=== PATIENT | female | born 1950 | race Caucasian/White ===

== ENCOUNTER 2016-05-10 12:10 | Emergency (ER) | payer MEDICARE, BC ==
[~2016-05-10] VITALS: Ht 167.6 cm; Wt 68.0 kg
[2016-05-10] MEDS ORDERED: ADDERAL20 MG ORAL (12:13)
[2016-05-10] MEDS ORDERED: ZOLPIDEM TARTRAT5 MG ORAL (12:13)
[2016-05-10 12:59] VITALS: BP 125/70
[2016-05-10 13:30] LABS: APPEARANCE,URINE CLEAR; BASOPHILS % (AUTO) 0.6 % (0.0-2.0); EOSINOPHILS % (AUTO) 1.6 % (0.0-3.0); KETONES,URINE NEGATIVE (NEGATIVE); LEUKOCYTE ESTERASE ,URINE NEGATIVE (NEGATIVE); LYMPHOCYTES % (AUTO) 34.1 % (20.0-45.0); MEAN CORPUSCULAR HEMOGLOBIN 29.4 PG (27.0-31.0); MEAN CORPUSCULAR HGB CONC 32.6 G/DL (32.0-36.0); MEAN CORPUSCULAR VOLUME 90 FL (80-99); MEAN PLATELET VOLUME 8.3 FL (6.5-10.1); MONOCYTES % (AUTO) 6.1 % (1.0-10.0); NEUTROPHILS % (AUTO) 57.6 % (45.0-75.0); NITRITE,URINE NEGATIVE (NEGATIVE); PH,URINE 7 (4.5-8.0); PLATELET COUNT 210 K/UL (150-450); PROTEIN,URINE NEGATIVE (NEGATIVE); RED BLOOD COUNT 4.03 M/UL (4.20-5.40); RED CELL DISTRIBUTION WIDTH 11.9 % (11.6-14.8); UROBILINOGEN,URINE NORMAL MG/DL (0.0-1.0); WHITE BLOOD COUNT 6.3 K/UL (4.8-10.8)
[2016-05-10 13:42] LABS: ACETAMINOPHEN < 10 ug/mL (10-30); ALANINE AMINOTRANSFERASE 12 U/L (3-33); ALBUMIN/GLOBULIN RATIO 2.1 (1.0-2.7); ALCOHOL < 10 mg/dL; ANION GAP 12 (5-15); ASPARTATE AMINO TRANSFERASE 16 U/L (5-40); CARBON DIOXIDE 28 mEQ/L (20-30); CHLORIDE 99 mEQ/L (98-107); CREATININE 0.9 mg/dL (0.5-0.9); GLOMERULAR FILTRATION RATE > 60 mL/min (>60); HEMOLYSIS 5; POTASSIUM 3.7 mEQ/L (3.4-4.9); SODIUM 139 mEQ/L (135-145); TOTAL PROTEIN 6.3 g/dL (6.6-8.7)
[2016-05-10 13:44] LABS: TROPONIN I < 0.30 ng/mL (<=0.30)
[2016-05-10 13:53] LABS: CKMB 2.6 ng/mL (< 3.8)
[2016-05-10 14:36] VITALS: BP 124/72
--- NOTE | 2016-05-10 15:10 | Emergency Room Report ---
History of Present Illness General Chief Complaint: Dizziness Source: Patient, Friend, EMS Present Illness HPI 65-year-old female presents to ED for evaluation. Per EMS patient's coworkers called 911 because she appeared disoriented today. Upon arrival patient appears lethargic and confused. Patient is answering questions. Patient admitted to nurse that she took Ambien this morning. Patient is aware that Ambien is used at nighttime to help her sleep. Patient denies any other drug use or alcohol use. Denies hitting her head or LOC. Denies suicidal or homicidal ideation. No other aggravating relieving factors. Denies any other associated symptoms Allergies: Coded Allergies: CODEINE (Verified Allergy, Unknown, 05/10/16) Patient History Past Medical History: psych hx Past Surgical History: none Pertinent Family History: none Social History: Denies: alcohol use, drug use, smoking Last Menstrual Period: na Now: No Immunizations: UTD Reviewed Nursing Documentation: PMH: Agreed, PSxH: Agreed Nursing Documentation-PMH Past Medical History: No History, Except For History Of Psychiatric Problem: Yes - anxiety Review of Systems All Other Systems: negative except mentioned in HPI Physical Exam Vital Signs Date Time Temp Pulse Resp B/P Pulse Ox O2 Delivery O2 Flow Rate FiO2 05/10/16 12:05 97.9 68 16 132/70 99 Room Air Sp02 EP Interpretation: reviewed, normal General Appearance: no apparent distress, GCS 15, non-toxic, lethargic Head: normocephalic, atraumatic Eyes: bilateral eye PERRL, bilateral eye normal inspection ENT: hearing grossly normal, normal pharynx, no angioedema, normal voice Neck: full range of motion, supple/symm/no masses Respiratory: chest non-tender, lungs clear, normal breath sounds, speaking full sentences Cardiovascular #1: regular rate, rhythm, no edema Cardiovascular #2: 2+ carotid (R), 2+ carotid (L), 2+ radial (R), 2+ radial (L) , 2+ dorsalis pedis (R), 2+ dorsalis pedis (L) Gastrointestinal: normal bowel sounds, non tender, soft, non-distended, no guarding, no rebound Rectal: deferred Genitourinary: normal inspection, no CVA tenderness Musculoskeletal: back normal, gait/station normal, normal range of motion, non- tender Neurologic: alert, responsive, motor strength/tone normal, sensory intact, speech normal Psychiatric: judgement/insight normal, memory normal, mood/affect normal, no suicidal/homicidal ideation Reflexes: 3+ bicep (R), 3+ bicep (L), 3+ tricep (R), 3+ tricep (L), 3+ knee (R) , 3+ knee (L) Skin: normal color, no rash, warm/dry, well hydrated Lymphatic: no adenopathy Medical Decision Making Diagnostic Impression: Primary Impression: Ambien use disorder, mild ER Course Hospital Course 65-year-old F presents to ED with altered mental status. Lethargic, disoriented Differential diagnoses include: Psychosis, EtOH, drug abuse Clinical course patient placed on stretcher. On front clerk. After initial history and physical ordered labs, IV fluids, EKG, CT brain. Labs reviewed-electrolytes okay, no leukocytosis, hemoglobin/hematocrit stable, tox panel negative CT brain shows no acute pathology Patient stated that she did use Ambien this morning. I instruct the patient and the friend on the dangers of Ambien use and its habit-forming use. She is no more awake and alert. Can be safely discharged to home i. I feel this is a highly complex case requiring extensive working including EKG/Rhythm strip, Xray/CT/US, Blood/urine lab work, repeat exams while in ED, and administration of strong opiates/narcotics for pain control, admission to hospital or close patient follow up. Diagnosis - ambien use disorder Stable and discharged to home. Followup with PMD. Return to ED if symptoms recur or worsen Labs Test 05/10/16 12:50 White Blood Count 6.3 K/UL (4.8-10.8) Red Blood Count 4.03 M/UL (4.20-5.40) Hemoglobin 11.8 G/DL (12.0-16.0) Hematocrit 36.4 % (37.0-47.0) Mean Corpuscular Volume 90 FL (80-99) Mean Corpuscular Hemoglobin 29.4 PG (27.0-31.0) Mean Corpuscular Hemoglobin Concent 32.6 G/DL (32.0-36.0) Red Cell Distribution Width 11.9 % (11.6-14.8) Platelet Count 210 K/UL (150-450) Mean Platelet Volume 8.3 FL (6.5-10.1) Neutrophils (%) (Auto) 57.6 % (45.0-75.0) Lymphocytes (%) (Auto) 34.1 % (20.0-45.0) Monocytes (%) (Auto) 6.1 % (1.0-10.0) Eosinophils (%) (Auto) 1.6 % (0.0-3.0) Basophils (%) (Auto) 0.6 % (0.0-2.0) Urine Color Pale yellow Urine Appearance Clear Urine pH 7 (4.5-8.0) Urine Specific [place] 1.005 (1.005-1.035) Urine Protein Negative (NEGATIVE) Urine Glucose (UA) Negative (NEGATIVE) Urine Ketones Negative (NEGATIVE) Urine Occult Blood Negative (NEGATIVE) Urine Nitrite Negative (NEGATIVE) Urine Bilirubin Negative (NEGATIVE) Urine Urobilinogen Normal MG/DL (0.0-1.0) Urine Leukocyte Esterase Negative (NEGATIVE) Sodium Level 139 mEQ/L (135-145) Potassium Level 3.7 mEQ/L (3.4-4.9) Chloride Level 99 mEQ/L (98-107) Carbon Dioxide Level 28 mEQ/L (20-30) Anion Gap 12 (5-15) Blood Urea Nitrogen 14 mg/dL (7-23) Creatinine 0.9 mg/dL (0.5-0.9) Estimat Glomerular Filtration Rate > 60 mL/min (>60) Glucose Level 97 mg/dL (74-106) Calcium Level 9.0 mg/dL (8.6-10.2) Total Bilirubin 0.4 mg/dL (0.0-1.2) Aspartate Amino Transf (AST/SGOT) 16 U/L (5-40) Alanine Aminotransferase (ALT/SGPT) 12 U/L (3-33) Alkaline Phosphatase 58 U/L (35-104) Total Creatine Kinase 119 U/L (26-140) Creatine Kinase MB 2.6 ng/mL (< 3.8) Creatine Kinase MB Relative Index 2.1 Troponin I < 0.30 ng/mL (<=0.30) Total Protein 6.3 g/dL (6.6-8.7) Albumin 4.3 g/dL (3.5-5.2) Globulin 2.0 g/dL Albumin/Globulin Ratio 2.1 (1.0-2.7) Salicylates Level < 1 mg/dL (10-30) Urine Opiates Screen Negative (NEGATIVE) Acetaminophen Level < 10 ug/mL (10-30) Urine Barbiturates Screen Negative (NEGATIVE) Phencyclidine (PCP) Screen Negative (NEGATIVE) Urine Amphetamines Screen Negative (NEGATIVE) Urine Benzodiazepines Screen Negative (NEGATIVE) Urine Cocaine Screen Negative (NEGATIVE) Urine Marijuana (THC) Screen Negative (NEGATIVE) Serum Alcohol < 10 mg/dL EKG Diagnostic Results Rate: bradycardiac Rhythm: NSR ST Segments: no acute changes ASA given to the pt in ED: No Rhythm Strip Diag. Results EP Interpretation: yes Rhythm: NSR, no PVC's, no ectopy Chest X-Ray Diagnostic Results EP Interpretation: No Findings: no consolidation, no effusion, no pneumothorax, no acute cardiopulmonary disease Number of Views: 1 CT/MRI/US Diagnostic Results CT/MRI/US Diagnostic Results : Imaging Test Ordered: CT head Impression no acute process Last Vital Signs Date Time Temp Pulse Resp B/P Pulse Ox O2 Delivery O2 Flow Rate FiO2 05/10/16 14:36 97.9 59 16 124/72 99 Room Air Status: improved Disposition: HOME, SELF-CARE Condition: Stable Referrals: NOT CHOSEN IPA/,REFERRING (PCP) ARIEL MERAZ M.D. May 10, 2016 15:10
[2016-05-10 15:27] VITALS: BP 130/64
--- NOTE | 2016-05-12 11:45 | Diagnostic Imaging Report ---
Indications: Altered mental status Technique: Continuous helical CT imaging of the brain was performed with nonionic exposure control on a Siemens sensation [address] scanner. Axial and coronal images were reconstructed at 5 mm slice thickness and interval. CTDI volume(s): 70 mGy Total DLP: 1509 mGy-cm Findings: Comparison: None No low attenuation is present in the bilateral periventricular white matter. Ventricles, cisterns, and sulci are only, diffusely prominent. No evidence of mass or hemorrhage, mass effect, midline shift, hydrocephalus, or increased intracranial pressure. Bone window images are unremarkable. Visualized paranasal sinuses and mastoid air cells are clear. IMPRESSION: No evidence of acute intracranial pathology Bilateral cerebral periventricular white matter low attenuation, nonspecific, likely chronic microvascular ischemic in nature. Atrophy. The CT scanner at [facility] is accredited by the [employer] and the scans are performed using protocols designed to limit radiation exposure to as low as reasonably achievable to attain images of sufficient resolution adequate for diagnostic evaluation.
--- NOTE | 2016-05-12 11:45 | Diagnostic Imaging Report ---
Indication: Chest pain Technique: Single portable AP view of the chest. Findings: Comparison: None. Suboptimal inspiration. Thoracic aorta mildly elongated. The visualized bones and extra pulmonary soft tissues, cardiomediastinal silhouette, pulmonary vasculature and parenchyma, and pleural surfaces are unremarkable. IMPRESSION: Probable chronic hypertensive change of the aorta Otherwise negative portable AP chestare limited as described.
--- NOTE | 2016-05-13 19:12 | Cardiology Report ---
APPROVED REPORT EKG Measurement Heart [id number] Sinus [address]cardia Nonspecific ST and T wave abnormality Abnormal ECG
== END 2016-05-10 15:30 | disposition home or self-care (01) ==
LOC: EDBD 12:10 → EMR 13:13
DX: F13.90 Sedative, hypnotic, or anxiolytic use, unspecified, uncomplicated (principal); R41.82 Altered mental status, unspecified; R41.0 Disorientation, unspecified
CPT/HCPCS: 36415; 70450; 71010; 80053; 80300; 81003; 82550; 82553; 84484; 85025; 93005; 96374; 99284; G0480; 80329